=== PATIENT | female | born 1960 ===

== ENCOUNTER 2016-12-02 15:43 | Emergency (ER) | payer OTHER ==
[2016-12-02 15:48] VITALS: BMI 29.2
[2016-12-02 15:50] VITALS: BP 153/86; PULSE 85; TEMP 98
--- NOTE | 2016-12-02 15:57 | ED PDOC ---
Arrival/HPI - General Chief Complaint: Abnormal Skin Integrity Time Seen by Provider: 12/02/16 15:57 Historian: Patient - History of Present Illness Narrative History of Present Illness (Text): 12/02/16 15:57 56 y/o female, pmh including renal stone, nkda, c/o rt. hand 2nd digit finger laceration x 2 hours. Last tetanus doesn't remember, cutting the frozen chicken , accidentally cut the rt. hand 2nd digit, no fever or chills, no headache or night sweat, no dizziness, no numbness or tingling, no other medical or psychological complaints. Past Medical History - Provider Review Nursing Documentation Reviewed: Yes - Infectious Disease Hx of Infectious Diseases: None - Cardiac Hx OK: No - Neurological Hx Neurological Disorder: Yes Hx Migraine: Yes - Hematological/Oncological Hx Blood Transfusions: No - Musculoskeletal/Rheumatological Hx Falls: No Hx Fractures: No - Gastrointestinal Hx Gastrointestinal Disorders: No - Psychiatric Hx Depression: No Hx Emotional Abuse: No Hx Physical Abuse: No Hx Substance Use: No - Surgical History Hx Hysterectomy: Yes (PARTIAL) - Anesthesia Hx Anesthesia: Yes Hx Anesthesia Reactions: No Hx Malignant Hyperthermia: No - Suicidal Assessment Feels Threatened In Home Enviroment: No Family/Social History - Physician Review Nursing Documentation Reviewed: Yes Family/Social History: Unknown Family HX Smoking Status: Never Smoked Hx Alcohol Use: No Hx Substance Use: No Hx Substance Use Treatment: No Allergies/Home Meds Allergies/Adverse Reactions: Allergies No Known Allergies Allergy (Verified 12/02/16 15:48) Home Medications: Home Meds Medication Instructions Recorded Confirmed Ibuprofen [Advil] 2 tab PO DAILY PRN 04/25/16 12/02/16 Review of Systems - Review of Systems Constitutional: absent: Fatigue, Fevers Eyes: absent: Vision Changes ENT: absent: Hearing Changes Respiratory: absent: SOB, Cough, Sputum Cardiovascular: absent: Chest Pain Gastrointestinal: absent: Abdominal Pain, Nausea, Vomiting Musculoskeletal: absent: Arthralgias, Back Pain, Neck Pain Skin: Laceration. absent: Rash, Pruritis, Skin Lesions, Abscess, Ulcer, Cellulitis Neurological: absent: Headache, Dizziness, Focal Weakness, Gait Changes Physical Exam Vital Signs Reviewed: Yes Vital Signs Temp Pulse Resp BP Pulse Ox 12/02/16 15:50 98 F 85 16 153/86 H 97 Temperature: Afebrile Blood Pressure: Hypertensive Pulse: Regular Respiratory Rate: Normal Appearance: Positive for: Well-Appearing, Non-Toxic, Comfortable Pain Distress: None Mental Status: Positive for: Alert and Oriented X 3 - Systems Exam Head: Present: Atraumatic, Normocephalic Pupils: Present: PERRL Extroacular Muscles: Present: EOMI Conjunctiva: Present: Normal Mouth: Present: Moist Mucous Membranes Neck: Present: Normal Range of Motion Respiratory/Chest: Present: Clear to Auscultation, Good Air Exchange. No: Respiratory Distress, Accessory Muscle Use Cardiovascular: Present: Regular Rate and Rhythm, Normal S1, S2. No: Murmurs Abdomen: Present: Normal Bowel Sounds. No: Tenderness, Distention, Peritoneal Signs Back: Present: Normal Inspection Upper Extremity: Present: Normal Inspection, Deformity (Rt. hand 2nd digit: triangular shaped laceration superficial noted to have approx. 2.5cm laceration with mild oozing, FROm without limitations, sensation intact, motor 5/5, + radial pulse, capillary refill< 2 seconds, neurovascular intact. ). No: Cyanosis, Edema Lower Extremity: Present: Normal Inspection. No: Edema Neurological: Present: GCS=15, CN II-XII Intact, Speech Normal Skin: Present: Warm, Dry, Normal Color. No: Rashes Psychiatric: Present: Alert, Oriented x 3, Normal Insight, Normal Concentration Medical Decision Making ED Course and Treatment: 12/02/16 16:10 -keflex, tetanus, motrin -wound irrigate with normal saline, clean with betadine, 1% lidocaine digital block with 2cc on the injured finger, 5-0 nylon made 7 stiches running and interrupted, hemostasis obtained, gauze dressing, sensation intact, motor 5/5, -Discharge home with keflex, bacitracin oinment, motrin, keep the dressing dry and clean for 2 days then clean with soap and water, sutures need to be removed by day 11-12, follow up with your own pmd and hand specialist within 2 days, return to the ER for any new or worsening signs or symptoms. - Medication Orders Current Medication Orders: Discontinued Medications Cephalexin Monohydrate (Keflex) 500 mg PO STAT STA PRN Reason: Protocol Stop: 12/02/16 16:07 Lidocaine HCl (Lidocaine 1% (20ml)) 2 ml IJ STAT STA Stop: 12/02/16 16:07 Lidocaine HCl (Lidocaine 1% (20ml)) Confirm Administered Dose 20 ml .ROUTE .STK- MED ONE Stop: 12/02/16 16:09 Tetanus/Reduced Diphtheria/Acell Pertussis (Boostrix Vaccine Inj) 0.5 ml IM .ONCE ONE Stop: 12/02/16 16:07 - PA / DATASTAGE CONSULTANT / Resident Statement / has reviewed & agrees with the documentation as recorded. Disposition/Present on Arrival - Present on Arrival Any Indicators Present on Arrival: No History of DVT/PE: No History of Uncontrolled Diabetes: No Urinary Catheter: No History of Decub. Ulcer: No History Surgical Site Infection Following: None - Disposition Have Diagnosis and Disposition been Completed?: Yes Diagnosis: Finger laceration Disposition Time: 16:14 Patient Plan: Discharge Patient Problems: Current Active Problems Problem Status Onset Finger laceration Acute Condition: GOOD Additional Instructions: Discharge home with keflex, bacitracin oinment, motrin, keep the dressing dry and clean for 2 days then clean with soap and water, sutures need to be removed by day 11-12, follow up with your own pmd and hand specialist within 2 days, return to the ER for any new or worsening signs or symptoms. Prescriptions: Bacitracin Ointment [Bacitracin] 1 appful TOP BID #15 g Cephalexin [cephalexin] 500 mg PO QID #28 cap Ibuprofen [Motrin] 600 mg PO QID PRN #24 tab PRN Reason: Other Referrals: Viola Yanes MD [Primary Care Provider] - Follow up with primary Grupo Stoner MD [Staff Provider] - Follow up with primary Forms: WORK NOTE
[2016-12-02] MEDS ORDERED: TDAP Vaccine 0.5 mL Syr IM ONE (16:06)
[2016-12-02] MEDS ORDERED: Lidocaine 1% Inj (20ml) IJ STA (16:06)
[2016-12-02] MEDS ORDERED: Lidocaine 1% Inj (20ml) ONE (16:08)
[2016-12-02 16:59] VITALS: RESP 18; O2SAT 99
== END 2016-12-02 16:59 | disposition home or self-care (01) ==
LOC: ED 15:43
DX: S61.210A Laceration without foreign body of right index finger without damage to nail, initial encounter (principal); W45.8XXA Other foreign body or object entering through skin, initial encounter; Z23 Encounter for immunization

== ENCOUNTER 2016-12-10 11:16 | Emergency (ER) | payer OTHER ==
[2016-12-10 11:40] VITALS: BP 128/73; PULSE 68; RESP 16; TEMP 98; O2SAT 98; BMI 28.9
--- NOTE | 2016-12-10 12:31 | ED PDOC ---
Arrival/HPI - General Historian: Patient - General Chief Complaint: Suture/Staple Removal Time Seen by Provider: 12/10/16 12:18 - History of Present Illness Narrative History of Present Illness (Text): 56-year-old female presents today for suture removal of the left second finger. Patient states 7 days ago she sustained a laceration while cutting chicken. She denies numbness weakness or tingling in the family. Denies decreased range of motion of the finger. Patient states she's been applying situation to the affected area. She denies fevers or chills. Denies pain. No other complaints 12/10/16 12:32 (Nayana Bowman) Past Medical History - Provider Review Nursing Documentation Reviewed: Yes - Travel History Have you recently traveled outside [place] w/in the past 3 mons?: No - Infectious Disease Hx of Infectious Diseases: None - Cardiac Hx DE: No - Neurological Hx Neurological Disorder: Yes Hx Migraine: Yes - Hematological/Oncological Hx Blood Transfusions: No - Musculoskeletal/Rheumatological Hx Falls: No Hx Fractures: No - Gastrointestinal Hx Gastrointestinal Disorders: No - Psychiatric Hx Depression: No Hx Emotional Abuse: No Hx Physical Abuse: No Hx Substance Use: No - Surgical History Hx Hysterectomy: Yes (PARTIAL) - Anesthesia Hx Anesthesia: Yes Hx Anesthesia Reactions: No Hx Malignant Hyperthermia: No - Suicidal Assessment Feels Threatened In Home Enviroment: No Family/Social History - Physician Review Nursing Documentation Reviewed: Yes Family/Social History: Unknown Family HX Smoking Status: Never Smoked Hx Alcohol Use: No Hx Substance Use: No Hx Substance Use Treatment: No Allergies/Home Meds Allergies/Adverse Reactions: Allergies No Known Allergies Allergy (Verified 12/02/16 15:48) Review of Systems - Review of Systems Constitutional: absent: Fatigue, Fevers Respiratory: absent: SOB, Cough Cardiovascular: absent: Chest Pain, Palpitations Gastrointestinal: absent: Abdominal Pain, Nausea, Vomiting Musculoskeletal: absent: Arthralgias Skin: Laceration Neurological: absent: Headache, Dizziness Physical Exam Vital Signs Reviewed: Yes Temperature: Afebrile Blood Pressure: Normal Pulse: Regular Respiratory Rate: Normal Appearance: Positive for: Well-Appearing, Non-Toxic, Comfortable Pain Distress: None Mental Status: Positive for: Alert and Oriented X 3 - Systems Exam Head: Present: Atraumatic Respiratory/Chest: Present: Clear to Auscultation Cardiovascular: Present: Regular Rate and Rhythm Upper Extremity: Present: Normal ROM, NORMAL PULSES, Neurovascularly Intact, Capillary Refill < 2s, Other (+ laceration to left 2nd finger along the distal aspect with one running suture and [address]; no edema, no erythema, no ecchymosis; full rom of finger; sensation and distal pulses intact. ). No: Tenderness, Swelling, Erythema, Deformity Skin: Present: Warm, Dry Psychiatric: Present: Alert, Oriented x 3 Medical Decision Making ED Course and Treatment: 12/10/16 13:39 Patient is nontoxic well-appearing in no distress. Vital signs are stable. suture removal; one running suture and 2 interrupted sutures removed; Wound healing well without signs of infection I advised the patient to keep the wound clean and dry apply bacitracin twice daily and return if symptoms worsen persist or if new symptoms develop Impression: Wound check, suture removal Keep the wound clean and dry Apply bacitracin twice daily Follow up with primary care physician within the next 2 days Return immediately if symptoms worsen persist or if new symptoms develop (Nayana Bowman) I was available for consultation during PA evaluation. The chart was reviewed by me, and I agree with disposition. The documented history was done by the physician lace cutter. The documented physical exam was done by the physician lace cutter. The documented procedures were done by the physician lace cutter. ( Kevin Wilkerson) Disposition/Present on Arrival - Present on Arrival Any Indicators Present on Arrival: No History of DVT/PE: No History of Uncontrolled Diabetes: No Urinary Catheter: No History of Decub. Ulcer: No History Surgical Site Infection Following: None - Disposition Have Diagnosis and Disposition been Completed?: Yes Disposition Time: 12:19 Patient Plan: Discharge - Disposition Diagnosis: Encounter for removal of sutures Disposition: HOME/ ROUTINE Condition: GOOD Discharge Instructions (ExitCare): Laceration (ED) Additional Instructions: Keep the wound clean and dry Apply bacitracin twice daily Follow up with primary care physician within the next 2 days Return immediately if symptoms worsen persist or if new symptoms develop Referrals: Evan Edwards MD [Staff Provider] - Follow up with primary Viola Yanes MD [Primary Care Provider] - Follow up with primary
== END 2016-12-10 12:43 | disposition home or self-care (01) ==
LOC: ED 11:16
DX: Z48.02 Encounter for removal of sutures (principal)